=== PATIENT | male | born 1955 | race Caucasian/White ===

== ENCOUNTER 2018-02-24 18:00 | Outpatient (CLI) | payer BC | END 2018-02-24 18:01 | disposition home or self-care (01) | LOC: SLEEPLAB 18:00 | PROVIDERS: ATTEND Family Medicine | DX: G47.33 Obstructive sleep apnea (adult) (pediatric) (principal); R53.83 Other fatigue; R06.83 Snoring; G47.10 Hypersomnia, unspecified; I10 Essential (primary) hypertension; E11.9 Type 2 diabetes mellitus without complications; Z68.35 Body mass index [BMI] 35.0-35.9, adult | CPT/HCPCS: 95806 ==

== ENCOUNTER 2018-04-17 20:30 | Outpatient (CLI) | payer BC | END 2018-04-17 20:31 | disposition home or self-care (01) | LOC: SLEEPLAB 20:30 | PROVIDERS: ATTEND Family Medicine | DX: G47.33 Obstructive sleep apnea (adult) (pediatric) (principal); R53.83 Other fatigue; R06.83 Snoring; I10 Essential (primary) hypertension; E11.9 Type 2 diabetes mellitus without complications; E03.9 Hypothyroidism, unspecified; E78.5 Hyperlipidemia, unspecified; R97.20 Elevated prostate specific antigen [PSA]; H91.90 Unspecified hearing loss, unspecified ear; E88.81 Metabolic syndrome and other insulin resistance; I48.0 Paroxysmal atrial fibrillation; R00.0 Tachycardia, unspecified; G47.10 Hypersomnia, unspecified; E66.9 Obesity, unspecified; Z68.35 Body mass index [BMI] 35.0-35.9, adult | CPT/HCPCS: 95811 ==

== ENCOUNTER 2018-11-24 13:50 | Outpatient (CLI) | payer BC ==
--- NOTE | 2018-11-24 15:37 | RAD ---
RIGHT HAND 3 VIEWS: Date: 11/24/18 HISTORY: Hand and finger pain. FINDINGS: Joint spaces all appear fairly well preserved with only minimal arthritic change seen. No fractures. IMPRESSION: Minimal arthritic changes of the hand. POS: [facility]
== END 2018-11-24 13:51 | disposition home or self-care (01) ==
LOC: SCSRAD 13:50
PROVIDERS: ATTEND Nurse Practitioner Family
DX: M79.644 Pain in right finger(s) (principal); M19.041 Primary osteoarthritis, right hand